=== PATIENT | female | born 1990 ===

== ENCOUNTER 2016-11-30 18:35 | Emergency (ER) | payer MEDICAID ==
[2016-11-30 19:03] VITALS: BP 112/76; PULSE 71; TEMP 98; O2SAT 100
--- NOTE | 2016-11-30 20:04 | C.PDOC ---
History Of Present Illness 26 y/o female presents to the ED with complains of nipple discharge from right breast which onset yesterday. Discharge is brown in color. Pt denies , breast pain, swelling or redness, fever, chills or any other complaints. Pt denies recent breast procedures. Time Seen by Provider: 11/30/16 19:11 Chief Complaint (Nursing): Breast Problem History Per: Patient History/Exam Limitations: no limitations Onset/Duration Of Symptoms: Hrs Current Symptoms Are (Timing): Still Present Severity: Mild Recent travel outside of the [place]: No Past Medical History Reviewed: Historical Data, Nursing Documentation, Vital Signs Vital Signs: Last Vital Signs Temp 98 F 11/30/16 19:01 Pulse 71 11/30/16 19:01 Resp 20 11/30/16 20:20 BP 112/76 11/30/16 19:01 Pulse Ox 100 11/30/16 20:17 Family History: States: Unknown Family Hx - Social History Hx Alcohol Use: Yes Hx Substance Use: No - Immunization History Hx Tetanus Toxoid Vaccination: No Hx Influenza Vaccination: No Hx Pneumococcal Vaccination: No Review Of Systems Except As Marked, All Systems Reviewed And Found Negative. Constitutional: Negative for: Fever, Chills Musculoskeletal: Positive for: Other (right breast discharge; no pain, swelling or redness) Physical Exam - Physical Exam Appears: Non-toxic, No Acute Distress Skin: Warm, Dry, No Rash Head: Atraumatic, Normacephalic Eye(s): bilateral: Normal Inspection Oral Mucosa: Moist Chest: No Tenderness, Other ((+) Brown discharge from right breast nipple; no tenderness, no mass felt, no swelling, no erythema or rash) Cardiovascular: Rhythm Regular, No Murmur Respiratory: Normal Breath Sounds, No Rales, No Rhonchi, No Wheezing Back: Normal Inspection, No CVA Tenderness Extremity: Bilateral: Atraumatic Neurological/Psych: Oriented x3, Normal Speech, Normal Motor Gait: Steady ED Course And Treatment O2 Sat by Pulse Oximetry: 100 (on room air) Pulse Ox Interpretation: Normal Progress Note: test negative. Instructed patient to follow up with OBGYN or breast surgeon for further evaluation, may need mammogram or US. Disposition - Disposition Referrals: Charlie Lazaro MD [Staff Provider] - Ki Nails MD [Staff Provider] - Disposition: HOME/ ROUTINE Disposition Time: 20:01 Condition: GOOD Additional Instructions: Follow up with theBreast doctor/OBGYN within 1-2 days for further evaluation. Instructions: Breast Self Exam for Women (ED) - Clinical Impression Clinical Impression: Nipple discharge - PA / [employer] / Resident Statement MD/DO has reviewed & agrees with the documentation as recorded. - Scribe Statement The provider has reviewed the documentation as recorded by the Scribofe Olivia All medical record entries made by the [place] were at my direction and personally dictated by me. I have reviewed the chart and agree that the record accurately reflects my personal performance of the history, physical exam, medical decision making, and the department course for this patient. I have also personally directed, reviewed, and agree with the discharge instructions and disposition.
[2016-11-30 20:20] VITALS: RESP 20
== END 2016-11-30 20:19 | disposition home or self-care (01) ==
LOC: C.ER 18:35
DX: N64.52 Nipple discharge (principal)